=== PATIENT | female | born 1945 | race Caucasian/White ===

== ENCOUNTER 2018-01-17 06:05 | Inpatient (IN) | payer MEDICARE ==
[2018-01-17] MEDS ORDERED: PAPAVERINE 60 MG INJ (07:31)
[2018-01-17] MEDS ORDERED: PROVENTIL HFA 6.7GM INHALER (08:02)
[2018-01-17] MEDS ORDERED: FENTAnyl 50 MCG/ML VIAL (08:02)
[2018-01-17] MEDS ORDERED: CEFAZOLIN 1 GM INJ (08:44)
[2018-01-17] MEDS ORDERED: FAMOTIDINE 20 MG INJ (08:47)
[2018-01-17] MEDS ORDERED: LIDOCAINE 2% (SDV) 5 ML INJ (08:47)
[2018-01-17] MEDS ORDERED: DEXAMETHASONE 4 MG/ML 1 ML INJ (08:47)
[2018-01-17] MEDS ORDERED: PROPOFOL 20 ML (08:47)
[2018-01-17] MEDS ORDERED: ONDANSETRON 4 MG INJ (08:47)
[2018-01-17] MEDS ORDERED: SUCCINYLCHOLINE CHLORIDE 100 MG/5 ML SYG IV (08:47)
[2018-01-17] MEDS ORDERED: ROCURONIUM 50 MG INJ (08:47)
[2018-01-17] MEDS ORDERED: hydrALAzine 20 MG INJ IV (09:00)
[2018-01-17] MEDS ORDERED: MEPERIDINE 25 MG INJ IV ×2 (09:00→10:30)
[2018-01-17] MEDS ORDERED: ONDANSETRON 4 MG INJ IV ×2 (09:00→10:30)
[2018-01-17] MEDS ORDERED: FENTAnyl 50 MCG/ML VIAL IV ×2 (09:00→10:30)
[2018-01-17] MEDS ORDERED: EPHEDrine SULFATE 50 MG/5 ML SYG IV (09:00)
[2018-01-17] MEDS ORDERED: DIPHENHYDRAMINE 50 MG INJ IV (09:00)
[2018-01-17] MEDS ORDERED: HYDROmorphONE 0.5 MG/0.5 ML SYG IV (09:00)
[2018-01-17] MEDS ORDERED: LABETALOL HCL 20MG INJ IV (09:00)
[2018-01-17] MEDS: POLYMYXIN/BACITRACIN 1L IRRIG (09:10)
[2018-01-17] MEDS: HEPARIN 1000 UNITS/ML 10 ML INJ (09:10)
[2018-01-17] MEDS: GELATIN SIZE 100 SPONGE ×2 (09:25→10:02)
[2018-01-17] MEDS: THROMBIN 5000 UNIT VIAL ×3 (09:26→10:03)
[2018-01-17] MEDS ORDERED: HYDROmorphONE 2 MG/ML SYG (09:47)
[2018-01-17] MEDS ORDERED: PROTAMINE 250 MG INJ (09:48)
[2018-01-17] MEDS ORDERED: EPHEDrine SULFATE 50 MG/5 ML SYG (09:57)
[2018-01-17] MEDS ORDERED: NEOSTIGMINE 3 MG/3 ML SYRINGE (09:58)
[2018-01-17] MEDS ORDERED: GLYCOPYRROLATE 0.4 MG INJ (09:58)
[2018-01-17] MEDS ORDERED: HYDROmorphONE 1 MG/5 ML IV SYRINGE IV (10:30)
[2018-01-17] MEDS ORDERED: PROCHLORPERAZINE 10 MG INJ IV (10:30)
[2018-01-17] MEDS: DIPHENHYDRAMINE 50 MG INJ IV (11:00)
[2018-01-17] MEDS: CLOPIDOGREL 75 MG TAB PO (14:23)
[2018-01-17] MEDS: ASPIRIN 81 MG TAB PO (14:23)
[2018-01-17] MEDS: LACTATED RINGER'S 1,000 ML IV (14:41)
[2018-01-17] MEDS: LACTATED RINGER'S 500 ML IV (14:41)
[2018-01-17] MEDS ORDERED: MONTELUKAST 10 MG TAB PO (21:00)
[2018-01-17] MEDS ORDERED: DULOXETINE 30 MG CAP DR PO (21:00)
[2018-01-17] MEDS ORDERED: GABAPENTIN 300 MG CAP PO (21:00)
[2018-01-17] MEDS: DULOXETINE 30 MG CAP DR PO (21:20)
[2018-01-17] MEDS: GABAPENTIN 300 MG CAP PO (21:20)
[2018-01-17] MEDS: MONTELUKAST 10 MG TAB PO (21:20)
[2018-01-17] MEDS: HYDROCODONE/APAP (5/325) TAB PO (22:15)
[2018-01-18] MEDS: HYDROCODONE/APAP (5/325) TAB PO ×4 (01:00→21:10)
[2018-01-18] MEDS: LACTATED RINGER'S 1,000 ML IV (01:01)
[2018-01-18 05:10] LABS: ADD MAN DIFF? NO
[2018-01-18 05:14] LABS: WHITE BLOOD COUNT 8.3 10^3/ul (4.8-10.8)
[2018-01-18 05:14] LABS: BASOPHILS % 0.4 % (0.0-2.0); EOSINOPHILS # 0.1 10^3/ul (0.0-0.5); HEMATOCRIT 32.8 % (37.0-47.0); HEMOGLOBIN 10.7 g/dl (12.0-16.0); LYMPHOCYTES # 2.2 10^3/ul (0.8-2.9); LYMPHOCYTES % 26.3 % (15.0-51.0); MEAN CORPUSCULAR HEMOGLOBIN 32.7 pg (29.0-33.0); MEAN CORPUSCULAR HGB CONC 32.6 g/dl (32.0-37.0); MEAN CORPUSCULAR VOLUME 100.3 fl (82.0-101.0); MEAN PLATELET VOLUME 8.4 fl (7.4-10.4); MONOCYTE # 0.8 10^3/ul (0.3-0.9); MONOCYTES % 9.5 % (0.0-11.0); NEUTROPHIL # 5.2 10^3/ul (1.6-7.5); NEUTROPHILS % 62.3 % (39.0-77.0); PLATELET COUNT 237 10^3/UL (140-415); RED BLOOD COUNT 3.27 10^6/ul (4.20-5.40); RED CELL DISTRIBUTION WIDTH 12.6 % (11.5-14.5)
[2018-01-18 05:41] LABS: ANION GAP 5 (5-13); BLOOD UREA NITROGEN 12 mg/dl (7-20); CALCIUM 8.5 mg/dl (8.4-10.2); CARBON DIOXIDE 30 mmol/L (21-31); CHLORIDE 98 mmol/L (97-110); CREATININE 0.47 mg/dl (0.44-1.00); GLUCOSE 107 mg/dl (70-220); SODIUM 133 mmol/L (135-144)
[2018-01-18] MEDS: PANTOPRAZOLE (EC) 40 MG TAB PO (06:32)
[2018-01-18] MEDS ORDERED: PANTOPRAZOLE (EC) 40 MG TAB PO (07:00)
[2018-01-18] MEDS: ALBUTEROL/IPRATROPIUM (NEB) 3 ML AMP HHN ×2 (08:52→15:24)
[2018-01-18] MEDS ORDERED: BUDESONIDE (EC) 3 MG CAP PO (09:00)
[2018-01-18] MEDS ORDERED: POTASSIUM CHLORIDE (SR) 20 MEQ TAB PO (09:00)
[2018-01-18] MEDS: POTASSIUM CHLORIDE (SR) 20 MEQ TAB PO (09:16)
[2018-01-18] MEDS: DULOXETINE 30 MG CAP DR PO ×2 (09:18→21:04)
[2018-01-18] MEDS: ASPIRIN 81 MG TAB PO (09:18)
[2018-01-18] MEDS: GABAPENTIN 300 MG CAP PO ×3 (09:19→21:03)
[2018-01-18] MEDS: BUDESONIDE (EC) 3 MG CAP PO (09:20)
[2018-01-18] MEDS: BETA CAROTENE/VIT C/E/MIN TAB PO (09:20)
[2018-01-18] MEDS: CLOPIDOGREL 75 MG TAB PO (09:20)
[2018-01-18] MEDS: FLUTICASONE/VILANTEROL 100-25 INH (09:20)
[2018-01-18] MEDS ORDERED: HEPARIN 5,000 UNIT/0.5 ML VIAL ×3 (15:10→21:01)
[2018-01-18] MEDS: FUROSEMIDE 20 MG INJ IV (15:18)
[2018-01-18] MEDS: HEPARIN 5,000 UNIT/1 ML VIAL SC ×2 (15:18→21:08)
[2018-01-18] MEDS: ACETAMINOPHEN 325 MG TAB PO (15:19)
[2018-01-18] MEDS: MONTELUKAST 10 MG TAB PO (21:04)
[2018-01-19 06:19] LABS: ADD MAN DIFF? NO
[2018-01-19] MEDS ORDERED: HEPARIN 5,000 UNIT/0.5 ML VIAL ×3 (06:20→21:07)
[2018-01-19] MEDS: PANTOPRAZOLE (EC) 40 MG TAB PO (06:21)
[2018-01-19] MEDS: HEPARIN 5,000 UNIT/1 ML VIAL SC ×3 (06:23→22:26)
[2018-01-19 06:24] LABS: BASOPHILS % 0.4 % (0.0-2.0); EOSINOPHILS # 0.1 10^3/ul (0.0-0.5); EOSINOPHILS % 1.1 % (0.0-7.0); HEMATOCRIT 33.7 % (37.0-47.0); HEMOGLOBIN 11.1 g/dl (12.0-16.0); LYMPHOCYTES # 1.7 10^3/ul (0.8-2.9); LYMPHOCYTES % 14.9 % (15.0-51.0); MEAN CORPUSCULAR HEMOGLOBIN 32.6 pg (29.0-33.0); MEAN CORPUSCULAR HGB CONC 32.9 g/dl (32.0-37.0); MEAN CORPUSCULAR VOLUME 99.1 fl (82.0-101.0); MEAN PLATELET VOLUME 8.6 fl (7.4-10.4); MONOCYTE # 0.9 10^3/ul (0.3-0.9); MONOCYTES % 7.9 % (0.0-11.0); NEUTROPHIL # 8.4 10^3/ul (1.6-7.5); NEUTROPHILS % 75.2 % (39.0-77.0); PLATELET COUNT 228 10^3/UL (140-415); RED CELL DISTRIBUTION WIDTH 12.8 % (11.5-14.5)
[2018-01-19 06:24] LABS: WHITE BLOOD COUNT 11.1 10^3/ul (4.8-10.8)
[2018-01-19 06:53] LABS: ALANINE AMINOTRANSFERASE 17 IU/L (13-69); ALBUMIN/GLOBULIN RATIO 1.15; ALKALINE PHOSPHATASE 61 IU/L (42-121); ANION GAP 5 (5-13); ASPARTATE AMINO TRANSFERASE 14 IU/L (15-46); BILIRUBIN,INDIRECT 0.5 mg/dl (0-1.1); BILIRUBIN,TOTAL 0.5 mg/dl (0.2-1.3); BLOOD UREA NITROGEN 11 mg/dl (7-20); CALCIUM 8.4 mg/dl (8.4-10.2); CARBON DIOXIDE 30 mmol/L (21-31); CHLORIDE 99 mmol/L (97-110); GLUCOSE 98 mg/dl (70-220); POTASSIUM 3.8 mmol/L (3.5-5.1); SODIUM 134 mmol/L (135-144); TOTAL PROTEIN 5.6 g/dl (6.1-8.1)
[2018-01-19] MEDS: FLUTICASONE/VILANTEROL 100-25 INH (08:27)
[2018-01-19] MEDS: CLOPIDOGREL 75 MG TAB PO (08:28)
[2018-01-19] MEDS: GABAPENTIN 300 MG CAP PO ×3 (08:29→20:52)
[2018-01-19] MEDS: POTASSIUM CHLORIDE (SR) 20 MEQ TAB PO (08:29)
[2018-01-19] MEDS: BUDESONIDE (EC) 3 MG CAP PO (08:29)
[2018-01-19] MEDS: BETA CAROTENE/VIT C/E/MIN TAB PO (08:30)
[2018-01-19] MEDS: DULOXETINE 30 MG CAP DR PO ×2 (08:30→20:52)
[2018-01-19] MEDS: ASPIRIN 81 MG TAB PO (08:30)
[2018-01-19] MEDS: ALBUTEROL/IPRATROPIUM (NEB) 3 ML AMP HHN (12:11)
[2018-01-19] MEDS: MUPIROCIN 2% 22 GM OINT TOP ×2 (13:00→21:00)
[2018-01-19] MEDS ORDERED: LABETALOL HCL 20MG INJ IV (13:30)
[2018-01-19] MEDS: SOD CHLORIDE 0.9% 500 ML IV (15:58)
[2018-01-19] MEDS: MONTELUKAST 10 MG TAB PO (20:52)
[2018-01-20] MEDS ORDERED: HEPARIN 5,000 UNIT/0.5 ML VIAL ×3 (05:09→20:05)
[2018-01-20] MEDS: PANTOPRAZOLE (EC) 40 MG TAB PO (06:10)
[2018-01-20] MEDS: HEPARIN 5,000 UNIT/1 ML VIAL SC ×3 (06:26→21:13)
[2018-01-20] MEDS: BUDESONIDE (EC) 3 MG CAP PO (08:33)
[2018-01-20] MEDS: DULOXETINE 30 MG CAP DR PO ×2 (08:33→21:02)
[2018-01-20] MEDS: BETA CAROTENE/VIT C/E/MIN TAB PO (08:33)
[2018-01-20] MEDS: ASPIRIN 81 MG TAB PO (08:34)
[2018-01-20] MEDS: POTASSIUM CHLORIDE (SR) 20 MEQ TAB PO (08:34)
[2018-01-20] MEDS: GABAPENTIN 300 MG CAP PO ×3 (08:34→21:02)
[2018-01-20] MEDS: CLOPIDOGREL 75 MG TAB PO (08:34)
[2018-01-20] MEDS: MUPIROCIN 2% 22 GM OINT TOP ×2 (08:43→21:13)
[2018-01-20] MEDS: FLUTICASONE/VILANTEROL 100-25 INH (10:09)
[2018-01-20] MEDS: MONTELUKAST 10 MG TAB PO (21:02)
[2018-01-21] MEDS ORDERED: HEPARIN 5,000 UNIT/0.5 ML VIAL (04:52)
[2018-01-21] MEDS: PANTOPRAZOLE (EC) 40 MG TAB PO (06:19)
[2018-01-21] MEDS: HEPARIN 5,000 UNIT/1 ML VIAL SC ×2 (06:36→13:16)
[2018-01-21] MEDS: DULOXETINE 30 MG CAP DR PO (09:03)
[2018-01-21] MEDS: GABAPENTIN 300 MG CAP PO ×2 (09:03→13:15)
[2018-01-21] MEDS: CLOPIDOGREL 75 MG TAB PO (09:03)
[2018-01-21] MEDS: POTASSIUM CHLORIDE (SR) 20 MEQ TAB PO (09:03)
[2018-01-21] MEDS: BETA CAROTENE/VIT C/E/MIN TAB PO (09:04)
[2018-01-21] MEDS: ASPIRIN 81 MG TAB PO (09:04)
[2018-01-21] MEDS: BUDESONIDE (EC) 3 MG CAP PO (09:04)
[2018-01-21] MEDS: FLUTICASONE/VILANTEROL 100-25 INH (09:05)
[2018-01-21] MEDS: MUPIROCIN 2% 22 GM OINT TOP (09:05)
== END 2018-01-21 16:25 | disposition home or self-care (01) | DRG 252 ==
LOC: REC 06:05 → 6WM 01-19 15:41 → ICU 12:44
PROC: 041L0JJ Bypass Left Femoral Artery to Left Femoral Artery with Synthetic Substitute, Open Approach (ICD-10-PCS; principal; 2018-01-17 08:00)
PROC: 04CL0ZZ Extirpation of Matter from Left Femoral Artery, Open Approach (ICD-10-PCS; 2018-01-17 08:00)
DX: I70.244 Atherosclerosis of native arteries of left leg with ulceration of heel and midfoot (principal); J96.01 Acute respiratory failure with hypoxia; J84.9 Interstitial pulmonary disease, unspecified; L97.429 Non-pressure chronic ulcer of left heel and midfoot with unspecified severity; D64.9 Anemia, unspecified; F17.210 Nicotine dependence, cigarettes, uncomplicated; J44.9 Chronic obstructive pulmonary disease, unspecified; M40.209 Unspecified kyphosis, site unspecified; R33.8 Other retention of urine; Z22.322 Carrier or suspected carrier of Methicillin resistant Staphylococcus aureus
CPT/HCPCS: 71045; 80048; 80053; 85025; 87040; 87081; 87086; 88304; 88311; 94640; 94664; 97162

== ENCOUNTER 2018-01-22 22:22 | Emergency (ER) | payer MEDICARE ==
[2018-01-23 00:05] LABS: ADD UMIC YES; UR ASCORBIC ACID 20 mg/dL (NEGATIVE); UR BACTERIA FEW /HPF (NONE SEEN); UR BILIRUBIN (Dip) NEGATIVE (NEGATIVE); UR BLOOD (Dip) NEGATIVE (NEGATIVE); UR CLARITY CLOUDY (CLEAR); UR COLOR YELLOW (YELLOW); UR GLUCOSE (Dip) NEGATIVE (NEGATIVE); UR KETONES (Dip) NEGATIVE (NEGATIVE); UR LEUKOCYTE ESTERASE (Dip) 2+ Leu/ul (NEGATIVE); UR NITRITE (Dip) NEGATIVE (NEGATIVE); UR RBC 4 /HPF (0-5); UR SPECIFIC GRAVITY (Dip) 1.004 (1.003-1.030); UR SQUAMOUS EPITHELIAL CELL MODERATE /HPF (FEW); UR TOTAL PROTEIN (Dip) NEGATIVE (NEGATIVE); UR UROBILINOGEN (Dip) NEGATIVE (NEGATIVE); UR WBC 19 /HPF (0-5)
== END 2018-01-23 03:11 | disposition home or self-care (01) ==
LOC: E/R 22:22
DX: N39.0 Urinary tract infection, site not specified (principal); F17.210 Nicotine dependence, cigarettes, uncomplicated; Z79.01 Long term (current) use of anticoagulants; Z79.82 Long term (current) use of aspirin
CPT/HCPCS: 51702; 81001; 87086; 99283-25

== ENCOUNTER 2018-01-23 11:43 | Emergency (ER) | payer MEDICARE ==
[2018-01-23] MEDS: CIPROFLOXACIN 500 MG TAB PO (12:34)
== END 2018-01-23 13:30 | disposition home or self-care (01) ==
LOC: E/R 11:43
DX: T83.038A Leakage of other urinary catheter, initial encounter (principal); N99.89 Other postprocedural complications and disorders of genitourinary system; R31.9 Hematuria, unspecified; I10 Essential (primary) hypertension; E11.9 Type 2 diabetes mellitus without complications; I25.10 Atherosclerotic heart disease of native coronary artery without angina pectoris; Y73.2 Prosthetic and other implants, materials and accessory gastroenterology and urology devices associated with adverse incidents; Z79.01 Long term (current) use of anticoagulants
CPT/HCPCS: 51702; 99283-25

== ENCOUNTER 2018-01-23 15:46 | Emergency (ER) | payer MEDICARE ==
[2018-01-23] MEDS: LACTATED RINGER'S 1,000 ML IV (17:04)
[2018-01-23] MEDS: OXYBUTYNIN 5 MG TAB PO (17:41)
== END 2018-01-23 18:38 | disposition home or self-care (01) ==
LOC: E/R 15:46
DX: T85.9XXA Unspecified complication of internal prosthetic device, implant and graft, initial encounter (principal); J44.9 Chronic obstructive pulmonary disease, unspecified; N30.01 Acute cystitis with hematuria; N99.89 Other postprocedural complications and disorders of genitourinary system; Y73.2 Prosthetic and other implants, materials and accessory gastroenterology and urology devices associated with adverse incidents; Z87.891 Personal history of nicotine dependence
CPT/HCPCS: 99284; 99284-25

== ENCOUNTER 2018-06-21 14:44 | Emergency (ER) | payer MEDICARE | END 2018-06-21 18:12 | disposition home or self-care (01) | LOC: FTE 14:44 | DX: S70.01XA Contusion of right hip, initial encounter (principal); S39.92XA Unspecified injury of lower back, initial encounter; J44.9 Chronic obstructive pulmonary disease, unspecified; W18.39XA Other fall on same level, initial encounter; Y92.9 Unspecified place or not applicable; Z79.82 Long term (current) use of aspirin; Z87.891 Personal history of nicotine dependence | CPT/HCPCS: 72100; 73510; 99283-25 ==

== ENCOUNTER 2018-07-09 11:32 | Emergency (ER) | payer MEDICARE ==
[2018-07-09] MEDS: morphine 4 MG/ML VIAL IV (14:14)
[2018-07-09] MEDS: ONDANSETRON 4 MG INJ IV (14:14)
== END 2018-07-09 18:18 | disposition home or self-care (01) ==
LOC: E/R 11:32
DX: S22.000A Wedge compression fracture of unspecified thoracic vertebra, initial encounter for closed fracture (principal); J44.9 Chronic obstructive pulmonary disease, unspecified; F17.210 Nicotine dependence, cigarettes, uncomplicated; S32.040A Wedge compression fracture of fourth lumbar vertebra, initial encounter for closed fracture; W18.39XA Other fall on same level, initial encounter; Y92.9 Unspecified place or not applicable
CPT/HCPCS: 72128; 72131; 96374; 96375; 99285-25